=== PATIENT | female | born 1970 | race Caucasian/White ===

== ENCOUNTER 2021-03-25 12:16 | Emergency (ER) | payer OTHER ==
[~2021-03-25] VITALS: Ht 154.9 cm; Wt 72.6 kg
[~2021-03-25 12:16] MED LIST: BUTALB-APAP-CA1 EACH PO; NAPROSYN500 MG PO; NORCO 5-325 TA1 EACH PO; ZOFRAN ODT4 MG PO
[2021-03-25] MEDS ORDERED: HYDROXYZINE HCL25 M2 PO (14:12)
[2021-03-25] MEDS ORDERED: PREDNISONE 20 M20 MG PO (14:12)
[2021-03-25] MEDS ORDERED: CLOBETASOL PROP15 G1 TOP (14:14)
[2021-03-25 14:30] VITALS: BP 115/69
== END 2021-03-25 14:30 | disposition home or self-care (01) ==
LOC: ER 12:16
DX: L23.89 Allergic contact dermatitis due to other agents (principal); Z88.8 Allergy status to other drugs, medicaments and biological substances; Z90.89 Acquired absence of other organs

== ENCOUNTER 2021-03-30 04:33 | Emergency (ER) | payer MEDICAID ==
[~2021-03-30] VITALS: Ht 157.5 cm; Wt 72.6 kg
[~2021-03-30 04:33] MED LIST changes: +CLOBETASOL PROP15 G1 TOP; +HYDROXYZINE HCL25 M2 PO; +PREDNISONE 20 M20 MG PO
[2021-03-30] MEDS ORDERED: LEXAPRO 10 MG T10 M2 PO (04:42)
[2021-03-30] MEDS ORDERED: KEFLEX750 MG PO ×2 (05:07→11:50)
[2021-03-30 05:20] VITALS: BP 129/54
== END 2021-03-30 05:20 | disposition home or self-care (01) ==
LOC: ER 04:33
DX: R21 Rash and other nonspecific skin eruption (principal); F41.9 Anxiety disorder, unspecified; F32.9 Major depressive disorder, single episode, unspecified; Z90.49 Acquired absence of other specified parts of digestive tract; Z79.899 Other long term (current) drug therapy; Z88.8 Allergy status to other drugs, medicaments and biological substances